=== PATIENT | female | born 2000 | race Caucasian/White ===

== ENCOUNTER 2023-08-15 18:06 | Emergency (ER) | payer MEDICAID ==
[~2023-08-15] VITALS: Ht 160 cm; Wt 68.0 kg
[2023-08-15 18:14] VITALS: BP 141/88; PULSE 73; RESP 20; TEMP 97.8; O2SAT 99
[2023-08-15] MEDS ORDERED: POLY15SO48 RIGHT EYE (19:02)
[2023-08-15 19:10] VITALS: BP 135/82; PULSE 77; RESP 16; TEMP 98; O2SAT 99
== END 2023-08-15 19:10 | disposition home or self-care (01) ==
LOC: MED 18:06
DX: H53.141 Visual discomfort, right eye (principal); Z79.899 Other long term (current) drug therapy
CPT/HCPCS: 99281; 99282